=== PATIENT | female | born 2005 | race Two or more races ===

== ENCOUNTER 2023-06-09 17:37 | Emergency (ER) | payer MEDICAID, OTHER ==
[~2023-06-09] VITALS: Ht 152.4 cm; Wt 63.6 kg
[2023-06-09 17:39] VITALS: BP 124/85; PULSE 120; RESP 18; TEMP 98; O2SAT 100
[2023-06-09] MEDS ORDERED: IBUP1TAB5 PO (21:56)
[2023-06-09] MEDS ORDERED: BACL5TAB2 PO (21:56)
[2023-06-09] MEDS ORDERED: IBUPROFEN 600 MG TAB PO ONE (22:00)
== END 2023-06-09 23:19 | disposition home or self-care (01) ==
LOC: ER 17:37 → EDBD 17:37 → ER 23:19
DX: S13.9XXA Sprain of joints and ligaments of unspecified parts of neck, initial encounter (principal); S83.92XA Sprain of unspecified site of left knee, initial encounter; S76.011A Strain of muscle, fascia and tendon of right hip, initial encounter; S63.502A Unspecified sprain of left wrist, initial encounter; S00.33XA Contusion of nose, initial encounter; V43.62XA Car passenger injured in collision with other type car in traffic accident, initial encounter; Y93.89 Activity, other specified; Y92.488 Other paved roadways as the place of occurrence of the external cause; Y99.8 Other external cause status
CPT/HCPCS: 29505; 70450; 70486; 72125; 73100; 73502; 73562